=== PATIENT | female | born 1985 | race Caucasian/White ===

== ENCOUNTER 2018-02-13 15:26 | Emergency (ER) | payer MEDICAID ==
[~2018-02-13] VITALS: Ht 162.6 cm; Wt 53.0 kg
[~2018-02-13 15:26] MED LIST: HYDR50CA PO
[2018-02-13] MEDS ORDERED: ALPRAZolam 0.5mg tablet PO ONE (16:30)
[2018-02-13] MEDS ORDERED: TRAZ-218 PO (16:57)
[2018-02-13 17:02] VITALS: BP 121/89
== END 2018-02-13 17:04 | disposition home or self-care (01) ==
LOC: ER 15:27
DX: F41.9 Anxiety disorder, unspecified (principal)
CPT/HCPCS: 99284